=== PATIENT | male | born 1990 | race Caucasian/White ===

== ENCOUNTER → 2024-01-22 12:12 | Outpatient (BNVA) | payer OTHER, SELFPAY | PROVIDERS: Visit Provider Internal Medicine Cardiovascular Disease | DX: R94.31 Abnormal electrocardiogram [ECG] [EKG] (principal) | CPT/HCPCS: 93005 ==

== ENCOUNTER 2024-01-22 12:14 | Outpatient (AMB) | payer OTHER, SELFPAY ==
--- NOTE | 2024-01-22 12:29 | A.OFFVIS_ITS ---
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 Patient is a 33-year-old male with no significant past medical history and generally healthy at working out. 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 He said he can work out without any issues. He has no past medical history. Denies any symptoms suggestive of sleep apnea. Generally says his blood pressure is within normal range. 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 He uses little salt in his diet. He maintains adequate hydration. Denies any exertional chest pain or shortness of breath. [facility] Family History Father No problems noted. Mother No problems noted. Social History Patient Tobacco Use Status: Never used Tobacco Review of Systems Const Denies chills, Denies daytime sleepiness, Denies fatigue, Denies fever(s), Denies frequent falls, Denies poor appetite, Denies snoring, Denies stops breathing during sleep, Denies weakness, Denies weight gain and Denies weight loss Eyes Denies loss of vision ENT Denies dizziness and Denies hearing loss Card Denies chest pain, Denies claudication, Denies leg edema, Denies lightheadedness, Denies palpitations, Denies dyspnea, Denies dyspnea on exertion and Denies orthopnea Resp Denies cough, Denies excessive phlegm production, Denies dyspnea, Denies dyspnea on exertion, Denies snoring and Denies wheezing GI Denies abdominal pain, Denies hematochezia, Denies change in bowel habits, Denies nausea and Denies vomiting Denies dysuria and Denies urinary frequency Musc Denies arthralgias, Denies muscle weakness, Denies numbness and Denies other (frequent falls) Skin/Breast Denies nail changes and Denies rash Neuro Denies Abnormal speech present, Denies dizziness, Denies frequent falls, Denies loss of vision, Denies memory loss, Denies numbness and Denies weakness Psych Denies depression and Denies memory loss Endo Denies fatigue and Denies palpitations Nilo/Lymph Reports easy bruising and Reports other (anemia) Aller/Immun Denies wheezing Physical Exam Vital Signs: Last Vital Signs Pulse 99 01/22/24 12:30 BP 142/74 H 01/22/24 12:30 BMI result Body Mass Index 33.7 Const General: cooperative, comfortable, no acute distress, well developed, alert, awake and Physically active Nutritional Appearance: well nourished, overweight and other (Muscular) Orientation/consciousness: patient oriented x3 Limitations: no limitations HEENT Head: Yes normocephalic and Yes atraumatic Neck Neck: Yes trachea midline, Yes supple and Yes no JVD Resp Effort & Inspection: normal respiratory effort Auscultation: clear to auscultation bilaterally Cardio Jugular venous distension: no JVD Palpation: normal PMI Rate: regular rate Rhythm: regular rhythm Heart sounds: S1 normal heart sound present, S2 normal heart sound present, no click, no gallops, no murmurs and no rubs GI Auscultation: normal bowel sounds Skin General skin exam: no rashes or lesions noted Neuro General: patient oriented x3 and no focal motor deficits Speech: No Abnormal speech present Extrem General: Yes no clubbing, cyanosis or edema Psych Appearance: grossly normal Office Procedures EKG Details: EKG shows normal sinus rhythm with rightward axis with ST T wave changes in the inferior leads as well as the inferolateral leads which could represent repolarization abnormality. [id number], Complete Assessment & Plan Assessment & Plan (1) Abnormal EKG: Code(s): R94.31 - Abnormal electrocardiogram [ECG] [EKG] Plan: Abnormal EKGs young man without any cardiovascular risk factors or any prior medical issues and currently asymptomatic high at high workload. 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 I would suggest him to undergo further workup to evaluate for structural heart disease especially myocardial ischemia and to evaluate for hypertensive heart disease. He does have borderline elevated blood pressure today which could be related to white coat hypertension and/or increased personal stress related to his profession in the recent time. We discussed about pursuing this more aggressively. I have advised him to monitor blood pressure more regularly at home. If it is persistently elevated above 130 systolic he will require further treatment with management of his blood pressure to reduce long-term end-organ damage. This was discussed with him. Understands agrees. Advised to maintain adequate hydration. Advised to maintain low-salt diet which she is currently doing. Further testing and management based on the findings of stress test as well as echocardiogram. The no significant underlying structural heart issues, these changes would be nonspecific and then he would be optimized to join the police force. Will follow up in the clinic in 4 weeks time. Thank you for allowing me to partake in his care Coding Level of Care Code New Pt Level 4 (80845) Diagnoses Abnormal EKG R94.31 CPT Codes EKG - CPT: 26355-[id number], Complete ([id number])
[2024-01-22 12:30] VITALS: BP 142/74; PULSE 99; BMI 33.7
== END 2024-01-22 12:53 | disposition home or self-care (01) ==
PROVIDERS: Visit Provider Internal Medicine Cardiovascular Disease
DX: R94.31 Abnormal electrocardiogram [ECG] [EKG] (principal)
CPT/HCPCS: 93010; 99204

== ENCOUNTER → 2024-01-24 09:48 | Outpatient (REF) | payer OTHER, SELFPAY ==
--- NOTE | 2024-01-24 09:51 | CA_ITS ---
Transthoracic Echocardiogram Patient (Last, First, Middle): Sree Odonnell C Gender: Male Date of : 1990 Age: 33 Procedure Date: 01/24/2024 Procedure Type: Transthoracic Echocardiogram Location: OP Height: 165.1 cm Weight: 85.28 kg BSA: 1.93 m2 Heart Rate: bpm BP: 134 / 68 mmHg Business Account Manager: TO Referring MD: Martin Amaya MD Symptoms: R94.31 - Abnormal electrocardiogram [ECG] [EKG] Study Quality: Fair/Contrast ECG Rhythm: Sinus Conclusions: - The left ventricular systolic function is normal. The calculated ejection fraction is 61% by biplane method. - There is mild septal asymmetric hypertrophy. - No obvious valvular pathology seen on this study. Findings Procedure Information Contrast agent, definity, is being given per protocol without apparent complications. Left Ventricle Normal left ventricular cavity size. The left ventricular systolic function is normal. The calculated ejection fraction is 61% by biplane method. There is no evidence of regional wall motion abnormalities. Diastolic function is normal for age. There is mild septal asymmetric hypertrophy. Right Ventricle Normal right ventricular cavity size and systolic function. Atria Both atria are normal in size. Aortic Valve There is a normal trileaflet aortic valve. There is no aortic valve stenosis. There is no aortic valve regurgitation. Mitral Valve There is mild anterior mitral leaflet thickening. There is trace mitral valve regurgitation. There is no mitral valve stenosis. Pulmonic Valve The pulmonic valve is likely normal. Tricuspid Valve There is trace tricuspid valve regurgitation. There is no evidence of pulmonary hypertension. Great Vessels The asc aorta is normal in size. Venous The inferior vena cava is normal in size and collapses less than 50% with inspiration. Pericardium/Pleural There is no evidence of pericardial effusion. Prior Study Comparison No prior study available for comparison. Recommendations, Care & Conclusions No obvious valvular pathology seen on this study. Measurements 2D Linear Measurements IVSd: 1.19 0.6-0.9/0.6-1.0 cm LVIDd: 4.27 3.9-5.3/4.2-5.9 cm LVIDd Index: 2.21 2.4-3.2/2.2-3.1 cm/m2 LVIDs: 2.76 2.0-3.6 cm LVPWd: 0.89 0.7-1.1 cm LA Diam: 3.30 2.7-3.8/3.0-4.0 cm LAIDs Index: 1.71 1.5-2.3 cm/m2 LV Mass: 185.45 67-162/88-224 g LV Mass Index: 96.09 43-95/49-115 g/m2 LVOT Diam: 2.40 3.0+(-)1.3 cm 2D Systolic Function EF 4C: 63.30 >55% EF 2C: 60.20 >55% EF BiP: 61.30 >55% Mitral Valve MV Pk E: 0.80 MV PK A: 0.65 MV Decel Time: 137.00 E/A: 1.20 E'Lateral: 9.14 E'Medial: 9.14 E/E' Med: 8.80 E/E' Lat: 8.80 PHT: 40.00 MVA PHT: 5.50 Decel [place]: 5.87 Aortic Valve AoV Pk Bryson: 1.33 AoV Mn Bryson: 0.91 AoV VTI: 0.23 AoV Pk Grad: 7.00 Aov Mn Grad: 4.00 JASMINE Cont.VTI: 4.82 LVOT LVOT Pk Bryson: 1.40 LVOT Mn Bryson: 0.89 LVOT VTI: 0.24 LVOT Pk Grad: 8.00 LVOT Mn Grad: 4.00 LVOT Diam: 2.40 LVOT Area: 4.52 Diastolic Function MV Pk E: 0.80 MV Pk A: 0.65 E/A: 1.20 E'Medial: 9.14 E/E' Med: 8.80 E' Laterial: 9.14 E/E' Lat: 8.80 Right Ventricle TAPSE (mm): 26.30 TVS' Bryson: 13.80 Tricuspid Valve RA Press: 3.00 Great Vessels Aorta Sinus of Valsalva: 3.30 2.0-3.5 cm Ao Asc: 2.90 2.1-3.4 cm Updated in Other Vendor System with Status of Final Ronnell Castillo MD electronically signed on 01/26/2024 12:31:27 PM with status of Final
== END ==
LOC: HO.CARD 09:48
PROVIDERS: Visit Provider Internal Medicine Cardiovascular Disease
DX: R94.31 Abnormal electrocardiogram [ECG] [EKG] (principal)
CPT/HCPCS: 93306; Q9957

== ENCOUNTER → 2024-01-24 09:51 | Outpatient (BNV) | payer OTHER, SELFPAY | PROVIDERS: Visit Provider Internal Medicine | DX: R94.31 Abnormal electrocardiogram [ECG] [EKG] (principal) | CPT/HCPCS: 93306 ==

== ENCOUNTER → 2024-01-26 11:02 | Outpatient (REF) | payer OTHER, SELFPAY ==
--- NOTE | 2024-01-26 11:04 | CA_ITS ---
Acquisition Time: 2024-01-26 10:58:33 Total Exercise Time: 00:12:06 Test Indications: ABN EKG Medications: SEE H Protocol: SARAH BETH Max HR: 179 BPM 95% of Pred: 187 BPM Max BP: 154/068 mmHG Max Work Load: 13.6 METS Exercise stress test exercise 12 min 6 sec of Sarah Beth protocol achieving 94% MPHR, without anginal symptoms, without arrhythmais, with normotensive response to exercise, without EKG changes. Echo images obtained by tech at rest and immediately post peak exercise. Definity contrast used. Test reviewed with Dr. Castillo. Referred By: Martin Amaya Overread By: Michelle Smith
== END ==
LOC: HO.CARD 11:02
PROVIDERS: Visit Provider Internal Medicine Cardiovascular Disease
DX: R94.31 Abnormal electrocardiogram [ECG] [EKG] (principal)
CPT/HCPCS: 93350; Q9957

== ENCOUNTER → 2024-01-26 11:04 | Outpatient (BNV) | payer OTHER, SELFPAY | PROVIDERS: Visit Provider Nurse Practitioner | DX: R94.31 Abnormal electrocardiogram [ECG] [EKG] (principal) | CPT/HCPCS: 93350 ==

== ENCOUNTER 2024-07-09 11:21 | Outpatient (AMB) | payer OTHER, SELFPAY ==
--- NOTE | 2024-07-09 11:52 | MHC.OFFWIV ---
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 Started last Monday. Patient Tobacco Use Status: Never used Tobacco Allergies No Known Allergies Allergy (Verified 07/09/24 11:53) Do you need a note to return to daycare/school/sports/work: Yes HPI HPI Comments History of Present Illness Details Patient is a 34-year-old male complaining a dry cough, chest congestion, head pressure and chills for the past 7 days. He states he had 1 episode of subjective fever 2 days ago. He also states he has some dark urine. He states he is in the [employer] and they do vigorous workouts each day. He denies any pain in his arms or legs. He states he has had some blood in his urine but that has been a chronic issue that he said his doctors could not find a cause for. He states he is trying to stay hydrated. He denies any sinus pain or ear pain. [facility] Family History Father No problems noted. Mother No problems noted. Social History Patient Tobacco Use Status: Never used Tobacco Review of Systems Const All systems reviewed & are unremarkable except as noted in HPI and below Physical Exam Vital Signs: Last Vital Signs Temp 98.6 F 07/09/24 11:53 Pulse 103 H 07/09/24 11:53 BP 128/82 07/09/24 11:53 Pulse Ox 98 07/09/24 11:53 Oxygen Delivery Method Room Air 07/09/24 11:53 BMI result Body Mass Index 31.8 Const General: cooperative, healthy appearing, comfortable and no acute distress Orientation/consciousness: patient oriented x3 Limitations: no limitations HEENT Head: Yes normal to inspection Ears: hearing grossly normal bilaterally, external ears normal and TM's normal bilaterally General nose exam: Normal external nose present, Normal nares present and No nasal discharge present Face and sinus: Yes normal facial exam and Yes sinuses nontender Mouth: Normal oral and palatal mucosa present and moist mucous membranes Throat: Yes tonsils normal, Yes uvula midline and Yes posterior oropharynx abnormal (Erythema) Eyes General: appearance normal, both eyes and all related structures Neck Neck: Yes normal visual inspection Resp Effort & Inspection: normal respiratory effort, able to speak in complete sentences, Actively coughing, no respiratory distress, not tachypneic, no tripod positioning and no use of accessory muscles Auscultation: clear to auscultation bilaterally Cardio Rate: regular rate Rhythm: regular rhythm Heart sounds: normal S1 and S2 Skin General skin exam: no rashes or lesions noted Neuro General: patient oriented x3 Extrem General: Yes normal to inspection and Yes no clubbing, cyanosis or edema Assessment & Plan Assessment & Plan (1) URI (upper respiratory infection): Code(s): J06.9 - Acute upper respiratory infection, unspecified Qualifiers: URI type: unspecified URI Qualified Code(s): J06.9 - Acute upper respiratory infection, unspecified Plan: Vital signs are stable, patient was well-appearing, physical exam is unremarkable. We will treat patient's cough with an albuterol inhaler. Sent COVID flu and RSV, recommended rest hydration. Also recommended for his dark urine to follow up with his PCP or go to an emergency department for further work up. Not likely rhabdo as patient does not have any pain in any of his extremities. Plan see above Orders: Orders SARS-CoV2/FLU/RSV Today J06.9 - Acute upper respiratory infection, unspecified Medications: New albuterol sulfate 90 mcg/actuation 2 puffs inhalation Q6H PRN 8.5 grams 0RF shortness of breath or wheezing or cough Coding Level of Care Code New Pt Level 3 (80679) Diagnoses Upper respiratory tract infection, unspecified type J06.9 URI type: unspecified URI
[2024-07-09 11:53] VITALS: BP 128/82; PULSE 103; TEMP 37; O2SAT 98; BMI 31.8
== END 2024-07-09 12:59 | disposition home or self-care (01) ==
PROVIDERS: Visit Provider Physician Assistant
DX: J06.9 Acute upper respiratory infection, unspecified (principal)
CPT/HCPCS: 99203

== ENCOUNTER 2024-07-09 12:19 | Outpatient (REF) | payer OTHER, SELFPAY ==
[2024-07-09 14:35] LABS: Influenza A PCR NEGATIVE (Negative); Influenza B PCR NEGATIVE (Negative); Resp Syncy Virus RNA Qual PCR NEGATIVE (Negative); SARS COV2 PCR INHOUSE NEGATIVE (Negative)
== END 2024-07-09 12:20 | disposition home or self-care (01) ==
LOC: HO.LAB 12:19
PROVIDERS: Visit Provider Physician Assistant
DX: J06.9 Acute upper respiratory infection, unspecified (principal)
CPT/HCPCS: 0241U